=== PATIENT | female | born 1945 | race Caucasian/White ===

== ENCOUNTER 2020-12-10 13:03 | Emergency (ER) | payer OTHER ==
[~2020-12-10] VITALS: Ht 172.7 cm; Wt 77.1 kg
[2020-12-10 13:13] VITALS: BP_SYST 138
[2020-12-10] MEDS ORDERED: MIDAZOLAM HCL 5 MG/5 ML VIAL IVP ONE (13:30)
[2020-12-10] MEDS ORDERED: PROPOFOL 200MG/ 20ML VIAL (DIPRIVAN) IV ONE ×2 (13:30→14:45)
[2020-12-10] MEDS ORDERED: DIAZEPAM 10 MG/2 ML DISP.SYRIN IVP ONE (13:30)
[2020-12-10] MEDS ORDERED: NACL 0.9% 1,000 ML IV ONE (13:45)
[2020-12-10] MEDS ORDERED: DIPH-TET-PERTUS Vaccine 0.5 ML VIAL (ADACEL) I.M. ONE (14:15)
[2020-12-10] MEDS ORDERED: IBUP-1971 PO (14:24)
[2020-12-10 15:29] VITALS: BP_SYST 160
== END 2020-12-10 15:30 | disposition home or self-care (01) ==
LOC: SED 13:03
DX: S43.005A Unspecified dislocation of left shoulder joint, initial encounter (principal); I10 Essential (primary) hypertension; Z90.49 Acquired absence of other specified parts of digestive tract; Z88.6 Allergy status to analgesic agent; W18.39XA Other fall on same level, initial encounter; Y93.89 Activity, other specified; Y92.89 Other specified places as the place of occurrence of the external cause; Y99.8 Other external cause status
CPT/HCPCS: 23650; 73030; 90471; 90715; 96361; 96374; 96375; 99284; J7030